=== PATIENT | male | born 1950 | race Caucasian/White ===

== ENCOUNTER 2023-07-21 05:01 | Observation (INO) ==
--- NOTE | 2023-06-08 12:36 | PAT Medication Instructions ---
Medication Instructions Date of Service June 08, 2023 Home Medications albuterol sulfate 90 mcg/actuation aerosol inhaler (Ventolin HFA) 2 puff inhalation Q4H PRN sob ascorbic acid (vitamin C) 500 mg capsule 500 mg PO QAM aspirin 81 mg tablet,delayed release (Adult Aspirin Regimen) 81 mg PO QAM glucosamine-chondroitin 250 mg-200 mg tablet (Osteo Bi-Flex) 1 tab PO QAM simvastatin 20 mg tablet (Zocor) 20 mg PO QPM acetaminophen 325 mg capsule (Tylenol) 325 mg PO QID PRN Pain multivitamin (Multiple Vitamins tablet) 1 tab PO QAM cholecalciferol (vitamin D3) 125 mcg (5,000 unit) tablet (Vitamin D3) 5,000 unit PO QAM STOP taking 2 weeks before surgery (or as soon as possible if surgery is within 2 weeks) glucosamine-chondroitin 250 mg-200 mg tablet (Osteo Bi-Flex) 1 tab PO QAM DO NOT take the morning of surgery ascorbic acid (vitamin C) 500 mg capsule 500 mg PO QAM multivitamin (Multiple Vitamins tablet) 1 tab PO QAM cholecalciferol (vitamin D3) 125 mcg (5,000 unit) tablet (Vitamin D3) 5,000 unit PO QAM Take morning of surgery With a small sip of water, OTHERWISE NOTHING TO EAT OR DRINK AFTER MIDNIGHT: albuterol sulfate 90 mcg/actuation aerosol inhaler (Ventolin HFA) 2 puff inhalation Q4H PRN sob (use if needed; please bring rescue inhaler with you to hospital day of surgery if possible) aspirin 81 mg tablet,delayed release (Adult Aspirin Regimen) 81 mg PO QAM (continue as normal unless told otherwise by surgeon) acetaminophen 325 mg capsule (Tylenol) 325 mg PO QID PRN Pain (if needed) Take evening before surgery albuterol sulfate 90 mcg/actuation aerosol inhaler (Ventolin HFA) 2 puff inhalation Q4H PRN sob (if needed) simvastatin 20 mg tablet (Zocor) 20 mg PO QPM acetaminophen 325 mg capsule (Tylenol) 325 mg PO QID PRN Pain (if needed) Other Notes If you have any questions please call us at [phone] or [phone] or [phone] or [phone]
--- NOTE | 2023-06-13 12:08 | Anesthesiology Consultation ---
Date of Service June 13, 2023 Assessment & Plan (1) Encounter for pre-operative examination: Plan lidocaine allergy Marked on OR notification. - awaiting upcoming appointment with Dr. George Colin 07/11/22, will send optimization form given that patient has this appointment prior to surgery. - Outpatient joint pathway: Per surgeon and patient, plan for outpatient joint program. Upon review of chart- patient is an acceptable candidate for Same Day Joint Program from anesthesia perspective pending perioperative course if patient is cleared by PCP. Pending patient is motivated, has good support and surgeon's office completes Same Day Joint Program preop requirements- patient may proceed with outpatient TKA. Chart Review Chart Review: Pending: Refer to Additional Notes / Consult section and Patient seen in Pre Admission Testing Teaching & Discussion Pre-Anesthesia Teaching/Discussion Notes: Instructed NPO after midnight before surgery, except medications with 15 cc of water. Medication instructions provided according to the PAT guidelines. History Surgery Operation Date: 07/21/23 08:55 Proposed Procedures p Right Total Knee Replacement - Daryl Anthony MD Height/Weight Height: 5 ft 10 in Weight: 87.9 kg Allergies Allergy/AdvReac Type Severity Reaction Status Date / Time latex Allergy Intermediate localized Verified 06/08/23 09:52 rash lidocaine Allergy Intermediate localized Verified 06/08/23 09:52 [From Salonpas (lidocaine)] rash lisinopril AdvReac Intermediate Cough Verified 06/08/23 09:52 Medications Home Medications Medication Instructions Recorded Confirmed Last Taken albuterol sulfate 90 mcg/actuation 2 puff inhalation Q4H PRN sob 03/06/20 06/08/23 Unknown aerosol inhaler (Ventolin HFA) ascorbic acid (vitamin C) 500 mg 500 mg PO QAM 03/06/20 06/08/23 Unknown capsule aspirin 81 mg tablet,delayed 81 mg PO QAM 03/06/20 06/08/23 Unknown release (Adult Aspirin Regimen) glucosamine-chondroitin 250 mg-200 1 tab PO QAM 03/06/20 06/08/23 Unknown mg tablet (Osteo Bi-Flex) simvastatin 20 mg tablet (Zocor) 20 mg PO QPM 03/06/20 06/08/23 Unknown acetaminophen 325 mg capsule 325 mg PO QID PRN Pain 03/10/20 06/08/23 Unknown (Tylenol) multivitamin (Multiple Vitamins 1 tab PO QAM 03/10/20 06/08/23 Unknown tablet) cholecalciferol (vitamin D3) 125 5,000 unit PO QAM 06/08/23 06/08/23 Unknown mcg (5,000 unit) tablet (Vitamin D3) Past Medical History Medical History (Updated 06/13/23 @ 12:13 by Linda Rey PA-C) Cervical radiculopathy pt denies History of COVID-2019 -> cough/sob/fever - no hospitalization. all resolved since. History of peptic ulcer as a child GERD (gastroesophageal reflux disease) resolved. no current issues Asthma well controlled - rarely uses inhaler-last use 1 week ago in colder weather Hyperlipidemia Patient denies h/o stroke, seizures, heart attack, heart failure, DM, HTN, blood clots/DVTs or blood transfusions. Exercise / Class Metabolic Activity II 4-5 Yardwork/Stairs/Walk up hill (denies chest discomfort or shortness of breath with 1 FOS) Past Family History Family History Father Emphysema, unspecified Lung cancer Colorectal cancer Mother Dementia Family history of thyroid problem Stroke Grandfather (Maternal) Myocardial infarction Grandfather No problems noted. Grandmother (Paternal) Myocardial infarction Grandfather (Paternal) Myocardial infarction Other No family history of adverse response to anesthesia Past Surgical History Surgical History H/O arthroscopy of right knee History of esophagogastroduodenoscopy (EGD) History of colonoscopy S/P total knee replacement left ([facility], 09/2022) S/P sinus surgery Past Anesthesia History No Hx of Anesthesia Complications and No Family Hx of Anesthesia Complications History of PONV No Hx of PONV and No Hx of Motion Sickness Social History Smoking Status: Never smoker Do You Dip or Chew Tobacco: No Hx Alcohol Use: Yes Alcohol type: beer alcohol intake frequency: a few times a month Hx Substance Use: No substance use type: does not use Review of Systems Patient denies chest pain, shortness of breath, dyspnea on exertion, snoring, witnessed apneas, fever, chills, or palpitations. Physical Exam Vital Signs Vitals BP 126/84 P 76 TEMP 97.8 SP02 96% on RA RESP 17 Physical Patient resting comfortably in chair in no acute distress, alert and oriented, responding appropriately throughout visit Full cervical extension range of motion without pain TMD 3.5 finger breadths Mallampati Score 3 Dentition: several caps; denies chipped or loose teeth, crowns, implants or bridges Lungs: normal respiratory effort. Good air movement, clear throughout to ausc ultation, no adventitious breath sounds Cardiac: regular rate and rhythm, no murmurs noted Carotid arteries: negative bruit bilat Lab Results Anesthesia Preop Results Results Anesthesia Widget: WBC 6.52 K/ul (4.8-10.8) 06/13/23 Hgb 15.3 g/dl (14.0-18.0) 06/13/23 Hct 47.8 % (42.0-52.0) 06/13/23 Plt 251 K/uL (130-400) 06/13/23 Na 138 mmol/L (136-145) 06/13/23 K 4.3 mmol/L (3.5-5.1) 06/13/23 Cl 104 mmol/L (98-107) 06/13/23 CO2 28 mmol/L (21-32) 06/13/23 BUN 26 mg/dl (6-23) H 06/13/23 Creat 0.96 mg/dl (0.6-1.4) 06/13/23 Glucose Level 82 mg/dl (70-99(Fasting)) 06/13/23 PT 11.1 Seconds (9.0-12.0) 06/13/23 PTT 30 Seconds (21-31) 06/13/23 INR 1.0 (0.9-1.1) 06/13/23 Urine Color Yellow 06/13/23 Urine Appearance Clear (Clear) 06/13/23 Urine pH 5.0 (4.5-7.5) 06/13/23 Urine Specific [place] 1.026 (1.000-1.030) 06/13/23 Urine Protein Negative (Negative) 06/13/23 Urine Glucose (UA) Negative (Negative) 06/13/23 Urine Ketones Negative (Negative) 06/13/23 Urine Blood Negative (Negative) 06/13/23 Urine Nitrite Negative (Negative) 06/13/23 Urine Bilirubin Negative (Negative) 06/13/23 Urine Urobilinogen Negative (Negative) 06/13/23 Urine Leukocyte Esterase Negative (Negative) 06/13/23 Blood Type A Positive 06/13/23 Antibody Screen NEGATIVE 06/13/23 Testing Electrocardiogram Date: 06/13/23 NSR, rate 76 bpm Left axis deviation RBBB No significant change vs 09/07/22 EKG Chest X-Ray Date: 09/07/22 No acute process
--- NOTE | 2023-07-18 14:03 | History & Physical Report ---
Date of Service July 18, 2023 Assessment & Plan (1) Right knee DJD: Plan: Right total knee replacement with patient-specific implants probable same-day surgery History of Present Illness Chief Complaint: Right knee pain Primary Care Provider: George Colin Patient is a 72-year-old male with a history of severe bilateral knee arthritis. He is status post successful left total knee replacement 10/16. He now presents with significant deformity decreased range of motion and giving way of the right knee. He has radiographic evidence of varus deformity and end-stage arthritis and has failed conservative management. He is admitted for second staged right total knee replacement Allergies Allergy/AdvReac Type Severity Reaction Status Date / Time latex Allergy Intermediate localized Verified 06/08/23 09:52 rash lidocaine Allergy Intermediate localized Verified 06/08/23 09:52 [From Salonpas (lidocaine)] rash lisinopril AdvReac Intermediate Cough Verified 06/08/23 09:52 Home Medications Medication Instructions Recorded Confirmed Type albuterol sulfate 90 mcg/actuation 2 puff inhalation Q4H PRN sob 03/06/20 06/08/23 History aerosol inhaler (Ventolin HFA) ascorbic acid (vitamin C) 500 mg 500 mg PO QAM 03/06/20 06/08/23 History capsule aspirin 81 mg tablet,delayed 81 mg PO QAM 03/06/20 06/08/23 History release (Adult Aspirin Regimen) glucosamine-chondroitin 250 mg-200 1 tab PO QAM 03/06/20 06/08/23 History mg tablet (Osteo Bi-Flex) simvastatin 20 mg tablet (Zocor) 20 mg PO QPM 03/06/20 06/08/23 History acetaminophen 325 mg capsule 325 mg PO QID PRN Pain 03/10/20 06/08/23 History (Tylenol) multivitamin (Multiple Vitamins 1 tab PO QAM 03/10/20 06/08/23 History tablet) cholecalciferol (vitamin D3) 125 5,000 unit PO QAM 06/08/23 06/08/23 History mcg (5,000 unit) tablet (Vitamin D3) Past Med/Surg History Medical History Cervical radiculopathy pt denies History of COVID-2019 -> cough/sob/fever - no hospitalization. all resolved since. History of peptic ulcer as a child GERD (gastroesophageal reflux disease) resolved. no current issues Asthma well controlled - rarely uses inhaler-last use 1 week ago in colder weather Hyperlipidemia Surgical History H/O arthroscopy of right knee History of esophagogastroduodenoscopy (EGD) History of colonoscopy S/P total knee replacement left ([facility] [place], 09/2022) S/P sinus surgery Family History Father Emphysema, unspecified Lung cancer Colorectal cancer Mother Dementia Family history of thyroid problem Stroke Grandfather (Maternal) Myocardial infarction Grandfather No problems noted. Grandmother (Paternal) Myocardial infarction Grandfather (Paternal) Myocardial infarction Other No family history of adverse response to anesthesia Social History Smoking Status: Never smoker Second Hand Exposure: No; Do You Dip or Chew Tobacco: No; Hx Alcohol Use: Yes Alcohol type: beer Alcohol Intake Frequency: 2-3 x/Week Hx Substance Use: No Preferred Language: Montenegrin Communication Ability: Effective Manager Poker Required: No Beliefs That Will Affect Care: None Current Living Situation: Spouse Feels Safe at Home: Yes Assistive Devices: Glasses Review of Systems Review of Systems: Knee pain Physical Exam Physical Exam: Weight 88 kg BMI 28 General: Well-nourished well-developed male who appears his stated age HEENT: NCAT, EOMI, PERRLA Neck: Supple negative bruits Heart: Regular rate and rhythm no murmurs or gallops Lungs: Breath sounds present and clear in all gregg Abdomen: Flat soft nontender bowel sounds are positive Extremities: Right knee shows varus deformity range of motion is 3 to 115 degrees there is 3 mm of medial laxity positive effusion and pain on range of motion Neurological and vascular: Intact Results & Data Results & Data Vital Signs (Past 12 Hours) Blood pressure is 118/86 Pulse 78
[2023-07-21] MEDS ORDERED: dexAMETHasone**PF** 10 MG/ML VIAL IV SCH (06:00)
[2023-07-21] MEDS ORDERED: TRANEXAMIC ACID 1,000 MG **IV Intra-op IV SCH (06:00)
[2023-07-21] MEDS ORDERED: ceFAZolin 2000MG 2,000 MG/15 ML SYR IV SCH (06:00)
[2023-07-21] MEDS ORDERED: traMADol HCL 50 MG TABLET PO SCH (06:00)
[2023-07-21] MEDS ORDERED: LR 500ML BOLUS, THEN 15ML/HR IV SCH (06:00)
[2023-07-21] MEDS ORDERED: TRANEXAMIC ACID 1,000 MG **IV Pre-op IV SCH (06:00)
[2023-07-21] MEDS ORDERED: ACETAMINOPHEN 500 MG TAB PO SCH (06:00)
[2023-07-21] MEDS ORDERED: CeleBREX 200 MG CAP PO SCH (06:00)
[2023-07-21] MEDS ORDERED: ROPIV 0.5% 246mg, Ketorolac 30mg, EPINEPHrine 0.5mg in NSS INFIL SCH (06:00)
[2023-07-21] MEDS ORDERED: LR 60ML/HR IV SCH (06:00)
[2023-07-21] MEDS ORDERED: METOCLOPRAMIDE HCL 10 MG TABLET PO SCH (06:00)
[2023-07-21] MEDS ORDERED: FAMOTIDINE 20 MG TAB PO SCH (06:00)
[2023-07-21] MEDS ORDERED: GABAPENTIN 300 MG CAP PO SCH (06:00)
[2023-07-21] MEDS ORDERED: EPINEPHrine INJ 1 MG/ML AMP ONE (06:17)
[2023-07-21] MEDS ORDERED: MEPIVACAINE HCL 1.5% 30 ML VIAL ONE (06:17)
[2023-07-21] MEDS ORDERED: BUPIVACAINE 0.25% PF 30 ML VIAL ONE (06:17)
[2023-07-21] MEDS ORDERED: DEXAMETHASONE SOD INJ 4 MG/ML VIAL ONE (06:17)
[2023-07-21] MEDS ORDERED: fentaNYL citrate PF 100 MCG/2 ML VIAL ONE (06:27)
[2023-07-21] MEDS ORDERED: MIDAZOLAM HCL 1 MG/ML 2ML VIAL ONE (06:27)
--- NOTE | 2023-07-21 06:43 | History & Physical Bridge Note ---
Date of Service July 21, 2023 History & Physical Bridge Note I have examined the patient, reviewed the History & Physical and in the interval since the performance of the History & Physical I have noted the following changes of clinical significance: no changes noted
[2023-07-21] MEDS ORDERED: ONDANSETRON INJ 2 MG/ML 2 ML VIAL IV PRN ×2 (06:51→16:36)
[2023-07-21] MEDS ORDERED: ePHEDrine sulfate 50 MG/ML AMP IV PRN (06:51)
[2023-07-21] MEDS ORDERED: PROMETHAZINE HCL 6.25 MG in SODIUM CHLORIDE 0.9% 50 ML IV PRN (06:51)
[2023-07-21] MEDS ORDERED: fentaNYL citrate PF 100 MCG/2 ML VIAL IV PRN (06:51)
[2023-07-21] MEDS ORDERED: ATROPINE SULFATE 0.1 MG/ML 10ML SYR IV PRN (06:51)
[2023-07-21] MEDS ORDERED: ORTHO JOINT ANESTHETIC ONE (07:13)
[2023-07-21] MEDS ORDERED: PROPOFOL IV EMULSION 10 MG/ML 20 ML VIAL IV ONE (07:21)
[2023-07-21] MEDS ORDERED: KETOROLAC 30 MG/ML VIAL ONE (08:12)
--- NOTE | 2023-07-21 08:17 | Post Operative Brief Note ---
Immediate Post Op Note v1 Date of Surgery July 21, 2023 Pre & Post Diagnosis Operation Date: 07/21/23 07:15 <No data on this case meets the specified criteria> I identified the patient and participated in the time-out.: Yes Procedure Operation Date: 07/21/23 07:15 <No data on this case meets the specified criteria> Surgeon Daryl Anthony MD [employer] Bonilla Helm PA-C Estimated Blood Loss 50 Findings Consistent with Post-Op Diagnosis
[2023-07-21] MEDS ORDERED: ACETAMINOPHEN 500 MG TAB PO PRN (08:19)
[2023-07-21] MEDS ORDERED: traMADol HCL 50 MG TABLET PO PRN ×2 (08:19)
--- NOTE | 2023-07-21 08:26 | Operative Report ---
Post Operative Report Pre & Post Diagnosis Operation Date: 07/21/23 07:15 <No data on this case meets the specified criteria> I identified the patient and participated in the time-out.: Yes Procedure Operation Date: 07/21/23 07:15 <No data on this case meets the specified criteria> Surgeon Daryl Anthnoy MD Transportation [employer] Titles Bonilla Helm PA-C Estimated Blood Loss 50 Findings Consistent with Post-Op Diagnosis severe tricompartmental degenerative changes with large periarticular osteophytes and significant bone wear especially in the medial compartment Specimens bone and cartilage fragments Complications none Indications patient is a 72-year-old male with a history of severe bilateral knee arthritis. He had successful left total knee replacement performed approximately 1 year ago. He now presents with end-stage disease of the right knee. Components used: [employer] journey 2 posterior stabilized knee system: Femur size 8 with Oxinium coating, tibia size 6 x 10, patella size 38 oval. Description of Procedure Following satisfactory spinal anesthesia the patient was supine on the operating room table. The right lower extremity was prepared with ChloraPrep and draped sterilely. A surgical timeout was performed. A midline incision was made with a median parapatellar arthrotomy. Hemostasis was obtained. The knee showed the changes noted above. The patella was extremely large and attention was first turned to the patella. The patella was freehand cut and sized for a 38 button. This relaxed the lateral gutter and enhanced exposure to the knee. The cruciate ligaments were excised. The patient matched femoral block was applied. Femoral distal rotation resection resetting completed. The 4-in-1 block was used to finish preparation of the femur. The tibial meniscal fragments were excised. The patient matched tibial block wa s applied. Tibial resection was completed. Soft tissue balancing was completed in flexion and extension. A trial reduction with the above-mentioned components was performed. This showed excellent tensioning and stability on the collateral ligaments from full extension to more than 120 degrees of flexion and the patella tracked well throughout. The trial components were removed. The capsule was prepared with the orthopedic cocktail. After irrigation and drying the components were cemented using Manjinder Z be cement cementing the tibia first, femur second, and patella third. When the cemented hardened the knee was checked and showed very similar stability and tracking. The wound was irrigated with 500 cc of experience irrigation. Hemovac drain was placed. The capsulotomy was closed with interrupted [id number] sutures of 1 Polysorb in a running suture of 0 strata fix. The subcutaneous tissues were closed with 0 strata fix in the deeper layers and 3 oh strata fix superficial. Dermabond Prineo dressing and a negative pressure wound dressing were applied. A compressive bandage was then applied. The patient was returned to his bed in stable condition. Note: Bonilla FERNANDO was present and assisted throughout due to the complicated nature of this case. He help with preparation and set up, he nurse first aid throughout. He assisted with hemostasis and exposure throughout the procedure. He also closed the capsule subcutaneous and skin layers and applied the postop dressing. I attest to the content of the Intraoperative Record and any orders documented therein. Any exceptions are noted below.
--- NOTE | 2023-07-21 09:25 | Anesthesiology Progress Note ---
Date of Service July 21, 2023 Anesthesia Post Procedure Vital Signs Vital Signs: Temp Pulse Pulse Resp BP Pulse Ox O2 Del Method 07/21/23 09:20 66 15 99/58 L 98 Room Air 07/21/23 09:15 64 15 81/55 L 100 Nasal Cannula 07/21/23 09:05 64 11 L 102/56 L 99 Nasal Cannula 07/21/23 08:55 36.2 C L 67 12 104/66 100 Nasal Cannula 07/21/23 05:29 36.6 C 81 20 150/95 H 97 Room Air O2 Flow Rate 07/21/23 09:20 0 07/21/23 09:15 2 07/21/23 09:05 2 07/21/23 08:55 4 07/21/23 05:29 Pain Intensity Right Knee: Pain Intensity: 3 Transfer of Care Handoff Completed per policy Notes Mental Status: alert / awake / arousable Patient Amnestic to Procedure: Yes Nausea / Vomiting: adequately controlled Pain: adequately controlled Airway Patency, RR, SpO2: stable & adequate BP & HR: stable & adequate Hydration State: stable & adequate Neuraxial Anesthesia: was administered and sensory block is resolving Anesthetic Complications: no major complications apparent and Pt Satisfied with anesthetic care
[2023-07-21] MEDS ORDERED: ceFAZolin 1000MG 1,000 MG/7.5 ML SYR IV ONE (15:30)
[2023-07-21] MEDS ORDERED: diphenhydrAMINE 50 MG/ML VIAL IV PRN (16:36)
[2023-07-21] MEDS ORDERED: NALOXONE HCL 0.4 MG/1 ML VIAL/CARP IV PRN (16:36)
[2023-07-21] MEDS ORDERED: MAGNESIUM HYDROXIDE SUSP 30 ML UDC PO PRN (16:36)
[2023-07-21] MEDS ORDERED: HYDROmorphone INJ 0.5 MG/0.5 ML SYR IV PRN (16:36)
[2023-07-21] MEDS ORDERED: ALBUTEROL HFA 8 GM INHALER INH PRN (16:36)
[2023-07-21] MEDS ORDERED: bisacodyL 10 MG SUPP PR PRN (16:36)
[2023-07-21] MEDS ORDERED: SODIUM CHLORIDE 0.9% 1,000 ML IV SCH (16:36)
[2023-07-21] MEDS: CeleBREX 200 MG CAP PO SCH (20:55)
[2023-07-21] MEDS: DOCUSATE SODIUM 100 MG CAP PO SCH (20:55)
[2023-07-21] MEDS: ASPIRIN 81 MG ECTAB PO SCH (20:56)
[2023-07-21] MEDS ORDERED: SENNA 8.6 MG TAB PO SCH (21:00)
[2023-07-21] MEDS ORDERED: SIMVASTATIN 20 MG TAB PO SCH (21:00)
[2023-07-21] MEDS: ceFAZolin 2000MG 2,000 MG/15 ML SYR IV SCH (21:02)
[2023-07-22] MEDS: ceFAZolin 2000MG 2,000 MG/15 ML SYR IV SCH (05:16)
[2023-07-22 07:07] LABS: Hematocrit (blood only) 39.6 % (42.0-52.0); Hemoglobin 12.9 g/dl (14.0-18.0); Mean Corpuscular Hemoglobin 29.3 pg (25.0-34.0); Mean Corpuscular Hgb Conc 32.6 g/dL (32.0-36.0); Mean Corpuscular Volume 89.8 fL (80.0-100.0); Mean Platelet Volume 9.5 fL (9.4-12.4); Platelet Count 251 K/uL (130-400); RDW Coefficient of Variation 12.6 % (11.5-14.5); RDW Standard Deviation 41.7 fL (36.4-46.3); Red Blood Count 4.41 M/uL (4.70-6.10); White Blood Count 18.51 K/ul (4.8-10.8)
[2023-07-22 07:41] LABS: BUN Creatinine Ratio 29.5 (10-20); Calcium 9.2 mg/dl (8.6-10.3); Creatinine Clr Calc Pharmacy 79.5 ml/min; Est GFR (African American) 100.2 ml/min; Est GFR (Non-African American) 86.4 ml/min; Potassium 4.2 mmol/L (3.5-5.1)
[2023-07-22] MEDS: CeleBREX 200 MG CAP PO SCH (08:02)
[2023-07-22] MEDS: ASPIRIN 81 MG ECTAB PO SCH (08:02)
[2023-07-22] MEDS: DOCUSATE SODIUM 100 MG CAP PO SCH (08:03)
[2023-07-22] MEDS ORDERED: MULTIVITAMIN TAB PO SCH (09:00)
[2023-07-22] MEDS ORDERED: CHOLECALCIFEROL 5,000 UNITS 125 MCG TAB PO SCH (09:00)
--- NOTE | 2023-07-22 10:11 | Orthopedic Progress Note ---
Date of Service July 22, 2023 Assessment & Plan (1) Right knee DJD: Plan: Patient continues with weakness most likely secondary to the abductor canal block. It has improved some and should continue to improve during the day. Discussed with patient he feels safe to go home with the immobilizer he should wear the immobilizer through the weekend until he is assessed by home therapy. Reviewed use of ice machine and medications and knee immobilizer. Patient to follow-up in 2 weeks time Admission and Anticipated Discharge Date Admission Date: July 21, 2023 Subjective Postoperative day #1 right total knee replacement Patient was to be an outpatient surgery but he continued to have quadricep weakness most likely due to to the adductor canal block and was remained overnight because of buckling even with an immobilizer. He states that he feels improved this morning he has some strength but still cannot fully extend his leg against gravity but he does feel that it is improving. Physical Exam Physical Exam: Patient's Juan Carlos bandage is clean dry and intact. His toes are warm he has normal sensation and movement of the lower extremity. He still has weakness and extension of the quad but certainly is firing the quad it is just weak. Results & Data Vital Signs (Past 12 Hours) Vital Signs Temp Pulse Resp BP Pulse Ox O2 Del Method 07/22/23 09:52 36.6 C 79 16 121/76 95 07/22/23 07:46 36.6 C 79 16 121/76 95 Room Air 07/22/23 03:27 36.6 C 74 18 128/76 97 Room Air 07/21/23 23:22 36.4 C L 78 18 132/74 96 Room Air
--- NOTE | 2023-07-26 13:57 | Discharge Summary ---
Date of Service July 26, 2023 Admission HPI Per Admitting Provider Patient is a 72-year-old male with a history of severe bilateral knee arthritis. He is status post successful left total knee replacement 10/16. He now presents with significant deformity decreased range of motion and giving way of the right knee. He has radiographic evidence of varus deformity and end-stage arthritis and has failed conservative management. He is admitted for second staged right total knee replacement Admission Exam Per Admitting Provider Physical Exam: Weight 88 kg BMI 28 General: Well-nourished well-developed male who appears his stated age HEENT: NCAT, EOMI, PERRLA Neck: Supple negative bruits Heart: Regular rate and rhythm no murmurs or gallops Lungs: Breath sounds present and clear in all gregg Abdomen: Flat soft nontender bowel sounds are positive Extremities: Right knee shows varus deformity range of motion is 3 to 115 degrees there is 3 mm of medial laxity positive effusion and pain on range of motion Neurological and vascular: Intact Principal Diagnosis Right knee DJD Discharge Data Allergies Allergy/AdvReac Type Severity Reaction Status Date / Time latex Allergy Intermediate localized Verified 07/21/23 05:24 rash lidocaine Allergy Intermediate localized Verified 07/21/23 05:24 [From Salonpas (lidocaine)] rash lisinopril AdvReac Intermediate Cough Verified 07/21/23 05:24 Procedures Performed Operation Date: 07/21/23 07:15 Actual Procedures p Right Total Knee Arthroplasty(Right) - Daryl Anthony MD Ordered Studies 07/21/23 05:00 US - OR guided needle placemen Routine Hospital Course (1) Right knee DJD: Patient: TIFFANIE CEDILLO Jr Admit Date: 07/21/23 MR#: [id number] Att Phy: Daryl Anthony MD Acct ID: [id number] Helga Phy: George Colin M.D. Date: 1950 Fam Phy: Age: 72 Location: 3E Sex: M Room/Bed: E312-1 cc: ~ *NOTICE TO RECEIVING DEMOCRAT/AGENCY This information is strictly Confidential and protected under [place] law. [place] law prohibits you from making any further disclosure of this information unless further disclosure is expressly permitted by the written consent of the person to whom it pertains or is authorized by law. A general authorization for the release of medical or other information is not sufficient for this purpose. Hospital accepts no responsibility if the information is made available to any other person, INCLUDING THE PATIENT. Date of Service July 22, 2023 Assessment & Plan (1) Right knee DJD: Plan: Patient continues with weakness most likely secondary to the abductor canal block. It has improved some and should continue to improve during the day. Discussed with patient he feels safe to go home with the immobilizer he should wear the immobilizer through the weekend until he is assessed by home therapy. Reviewed use of ice machine and medications and knee immobilizer. Patient to follow-up in 2 weeks time Admission and Anticipated Discharge Date Admission Date: July 21, 2023 Subjective Postoperative day #1 right total knee replacement Patient was to be an outpatient surgery but he continued to have quadricep weakness most likely due to to the adductor canal block and was remained overnight because of buckling even with an immobilizer. He states that he feels improved this morning he has some strength but still cannot fully extend his leg against gravity but he does feel that it is improving. Physical Exam Physical Exam: Patient's Juan Carlos bandage is clean dry and intact. His toes are warm he has normal sensation and movement of the lower extremity. He still has weakness and extension of the quad but certainly is firing the quad it is just weak. Results & Data Vital Signs (Past 12 Hours) Vital Signs Temp Pulse Resp BP Pulse Ox O2 Del Method 07/22/23 09:52 36.6 C 79 16 121/76 95 07/22/23 07:46 36.6 C 79 16 121/76 95 Room Air 07/22/23 03:27 36.6 C 74 18 128/76 97 Room Air 07/21/23 23:22 36.4 C L 78 18 132/74 96 Room Air Signed By: <Electronically signed by Daryl Anthony MD> 07/22/23 1011 Created: 07/22/23 1008 Total Time Total Time Spent Total Time Spent (In Minutes): 5 Discharge Plan Discharge Items Patient Disposition: Home - Home Health Services Reason For Visit: TKA Discharge Diagnosis: Osteoarthritis right knee Activity: Per Instructions section Weightbearing Comment: As tolerated with walker Non-emergency contact: Surgeon Call non-emergency contact if: you have any medication questions, your pain is not controlled, your temperature is above 101.5, your wound has increased redness and your wound has increased drainage Follow-up/Referrals: [facility] [Outside] (as per surgeon's office ) Daryl Anthony MD [Surgeon] - (Follow-up with Dr. Anthony or his PA in 2 weeks from the day of surgery for your first postoperative visit) George Colin [Primary Care Provider] - Diet: Regular Addtl Attending Provider Instructions: DR. HUGHES POST-OP INSTRUCTIONS FOR TOTAL KNEE ARTHROPLASTY PLEASE REVIEW PRIOR TO SURGERY Day of Surgery You will be admitted and meet the nursing and anesthesia team. Dr. Anthony will see you and sign your operative side. Anesthesia will place your spinal anesthetic in the pre-op area Your surgery will be performed and last approximately 1 2 hours. Upon waking, you will notice a dressing and ice pack on your knee. If you purchased the [employer] Cold Compression unit, this will be applied to your knee. You will remain in the recovery room for 1 2 hours, then be transferred to your room in the ambulatory surgical area if you are to go home the same day of your surgery or on the orthopedic floor if you will be staying overnight. Most of Dr. Hughes total knee patients go home the same day as surgery. This depends on how well you feel. Patients generally seem to feel better in their own home environment, and the risk of exposure to bad bugs is much lower. (Your post-operative medications will be sent to your pharmacy approximately 1-2 days prior to your procedure) Day 1 post-op (if you have an overnight stay in the hospital) You will have bloodwork drawn in the morning Physical therapy will evaluate you in the morning. You will start getting out of bed and ambulating with a walker. They will instruct you on knee motion exercises. Use your cold packs or your cold compression unit as instructed. This will decrease swelling and minimize pain. cloud services architect will discuss your discharge plan. Discharge will generally be around 11am Day 1 post-op (all patients) You will be taking Aspirin 81mg twice for 4 weeks to decrease the risk of a blood clot. You will most likely have a drain and MUNIR (superficial wound VAC) dressing post-operatively covered by an juan carlos wrap dressing. (home nurse will remove juan carlos wrap/drain) This will keep your incision dry as well as aid in early healing. The batteries will wear out and the VAC will lose suction around day 6 7 post-op. At that time, you may turn off the device and disconnect it from your dressing. You may remove your dressing 10 days after surgery if it becomes bothersome and irritating to your skin. If the dressing appears to be saturated, please call our office. Day 2-14 post-op You will have a home nurse visit to assess your status and remove your juan carlos wrap/drain on post-op day 2. You are permitted to shower immediately with the VAC. Do not soak the dressing let the shower flow on your opposite side, and pat dry the plastic. Once the dressing has been removed, you may shower normally with the incision exposed. Do not rub the area simply let soapy water run over the incision and lightly pat dry. Therapy will begin on post-op day 3. Your therapy prescription will be sent to your home therapy company/therapist You should continue doing your home exercises Week 2 post-op and forward You will have your first post-op appointment 2 weeks after surgery which should have been scheduled for you by our office. This appointm ent will be to check your incision, progression of therapy and pain control. You will continue to use a cane or a walker until you feel safe enough to stop using it. You will have a 6-week post-op appointment which should have been scheduled for you by our office. X-rays will be taken to evaluate the prosthesis. You will continue to advance range of motion. By 3 to 4 months after surgery, you should have almost full range of motion and may resume most activities. You may have some pain around the knee with certain activities this is completely normal. You will be scheduled for a 1-year post-op appointment to assess your outcome (sooner if Dr. Anthony feels it is necessary). Pain: The immediate post-op period after knee replacement surgery can be painful. You should take your pain medicine as you need it, especially prior to physical therapy and bedtime. Your pain WILL get better, and you may transition to a milder pain medicine (with less side effects, such as Tylenol) as soon as possible. It is common to have pain at night that interferes with sleep this can last for several months. Pain medicines can cause nausea and constipation do not take more than you need. You may be prescribed one or more of the following medications: 1. Celebrex this controls inflammation and makes pain medications more effective it will be taken once or twice a day 2. Tylenol a pain medicine that can help to decrease your pain you should take 1000mg three times a day 3. Tramadol a pain medicine that can be taken every 4-6 hours (instead of Oxycodone) as needed to control your pain 4. Oxycodone a VERY strong pain medicine that can be taken every 4- 6 hours (instead of Tramadol) as needed to control your pain. This medication has the most side effects. 5. Aspirin 81mg blood thinning medication to help minimize the risk of development of blood clots unfortunate side effects of pain medicine include nausea and constipation if you experience these issues or have any questions about your post-op medications, call [facility] at for assistance/advice on how to manage these issues Physical therapy is a VERY important part of knee replacement surgery. The office will arrange for a therapist to come to your home to instruct you on exercises. It is very important to practice on your own (or with the assistance of a family member). While in the hospital, you will be shown a series of home exercises you should perform these exercises 3 4 times daily in addition to physical therapy. After the completion of home therapy (approx. 2 weeks), most therapy exercises can be done on your own. You should get up to walk several times a day. Try not to stand longer than 1 hour at a time to minimize swelling. If you develop swelling, you need to elevate your legs/feet at or above the level of your heart. You may progress from walker to cane to ambulating independently as you feel comfortable. Unless it is an emergency, YOU ARE NOT PERMITTED TO HAVE ANY DENTAL CLEANING/WORK UNTIL 3 MONTHS AFTER SURGERY. You will be required to take an antibiotic prior to any dental cleaning or dental work in order to prevent your joint prothesis from getting infected. This medication is a one time per visit dose to be taken one hour prior to appointment. You may call our office for this prescription or your dentist may be willing to prescribe the medication. Remember to contact [facility] at if you develop any signs of infection which include increased swelling, pain, redness, drainage from incision, warmth, fever, chills or severe pain unrelieved by pain medication. If you develop any chest pain or shortness of breath, you should proceed immediately to the closest Emergency Room. It is normal to run a low-grade fever after surgery. If your fever is consistent at 101.0 or higher, you will need to contact the office. Stand-Alone Forms: My [facility] Medications and DC Order Prescriptions: Continued albuterol sulfate [Ventolin HFA] 90 mcg/actuation HFA aerosol inhaler 2 puff inhalation Q4H PRN (Reason: sob) simvastatin [Zocor] 20 mg tablet 20 mg PO QPM ascorbic acid (vitamin C) 500 mg capsule 500 mg PO QAM glucosamine-chondroitin [Osteo Bi-Flex] 250-200 mg tablet 1 tab PO QAM Rx Instructions: give after food/meal multivitamin [Multiple Vitamins] Tablet 1 tab PO QAM cholecalciferol (vitamin D3) [Vitamin D3] 125 mcg (5,000 unit) Tablet 5,000 unit PO QAM Discontinued aspirin [Adult Aspirin Regimen] 81 mg tablet,delayed release (DR/EC) 81 mg PO QAM acetaminophen [Tylenol] 325 mg capsule 325 mg PO QID PRN (Reason: Pain) Maritza/Other Patient Handouts: DVT Post Op Prevention Admission Data Admit Date/Time: 07/21/23 15:29 Attending Provider: Daryl Anthony Admit Provider: Daryl Anthony Primary Care Provider: George Colin Other Interventions: Discharge Summary Assessment (RN) Last Done: 07/22/23 09:52
== END 2023-07-22 11:52 | disposition home health service (06) ==
LOC: 3E 05:01 → ASU 05:01